=== PATIENT | female | born 1930 | race Caucasian/White ===

== ENCOUNTER 2016-09-07 14:45 | Inpatient (IN) | payer MEDICARE, BC ==
[~2016-09-07] VITALS: Ht 149.9 cm; Wt 58.4 kg
--- NOTE | ~2016-09-07 | CON ---
PATIENT'S NAME: KARLA CUEVA [facility] AGE: 85 Y [address] ROOM: [place] [address] LOCATION: [facility] [place] ADMIT DATE: 09/07/2016 Consultation DISCHARGE DATE: FAMILY PHYSICIAN: PHYSICIAN, UNKNOWN ATTENDING PHYSICIAN: TRICE HENRY DATE OF CONSULTATION: 09/07/2016 REFERRING PHYSICIAN: Coral Mayo MD REFERRING PHYSICIAN: Dr. Henry. CONSULTING PHYSICIAN: Coral Mayo MD. REASON FOR CONSULTATION: Possible choledocholithiasis. HISTORY OF PRESENT ILLNESS: The patient is a pleasant 85-year-old white female, referred to us from [place] for suspected choledocholithiasis. According to the patient, she has not been well during entire winter starting from . She has been experiencing intermittent right upper quadrant pain. This is sharp, stabbing pain and this lasts for few minutes and then disappears. This pain really got worse in the last week or so. She also had episodes of nausea and vomiting. Initially, she was given some antibiotics and sent home, but the pain persisted. She was then seen in the ER in [place] with complains of increasing discomfort as well as pain. The PA from [place], [place], called me. We have decided to shift the patient over for further management. She was also noted to have increased LFTs as well as increasing WBC count. I unfortunately do not have access to the ultrasound report. PAST MEDICAL HISTORY: Significant for hypothyroidism, vertigo, rheumatoid arthritis, gastroesophageal reflux disease. ALLERGIES: TO DEMEROL, SULFA, AND LATEX. CURRENT MEDICATIONS: At home include: 1. Naprosyn sodium b.i.d. 2. Calcium with vitamin D. 3. Triamterene and hydrochlorothiazide. 4. Azathioprine 50 mg. PATIENT'S NAME: KARLA CUEVA [facility] AGE: 85 Y [address] ROOM: [place] [address] LOCATION: [facility] [place] ADMIT DATE: 09/07/2016 Consultation DISCHARGE DATE: FAMILY PHYSICIAN: PHYSICIAN, UNKNOWN ATTENDING PHYSICIAN: TRICE HENRY 5. Multivitamin. 6. Tramadol. 7. Cyanocobalamin. 8. Cholecalciferol. 9. Omeprazole. 10. Levothyroxine. 11. Cetirizine. SOCIAL HISTORY: She denies any cigarette or illicit drug use. PAST SURGICAL HISTORY: Significant for tonsillectomy, hysterectomy, bilateral knee arthroplasty, and post bilateral cataract surgery. FAMILY HISTORY: Father from complications from hip fracture at age 98. Mother from colon cancer at age 87. REVIEW OF SYSTEMS: A detailed 10-point review of system was done and found to be negative other than what is mentioned in the history of present illness and past medical history. PHYSICAL EXAMINATION: GENERAL: She is alert and awake. She appears to be slightly flushed. VITAL SIGNS: Blood pressure is 123/76, respiratory rate is 18, pulse 99 per minute, temperature is 97.6. HEENT: Reveals no pallor. She does appear to have mild icterus, light is of limited at this time. NECK: No masses are felt. No thyromegaly is felt. CARDIOVASCULAR: S1 and S2. I do not hear any carotid bruits. CHEST: Clear to auscultation bilaterally. No wheezing. No rhonchi. ABDOMEN: Soft. There is mild epigastric tenderness. No rigidity, guarding, or rebound. MUSCULOSKELETAL: No obvious deformities are seen. NEUROLOGICAL: Grossly nonfocal. LABORATORY DATA: The lactate level is 1.7, which is slightly increased. WBC 13.2, hemoglobin 15.2, hematocrit 44.9, platelet count 214. Her basic panel shows a sodium 131, potassium 4.1, chloride is 95, bicarb is 27, BUN is 22, creatinine 0.8. Total protein 7.9, albumin 2.5, total bilirubin 3.9, ALP of 108, AST of 94, alkaline phosphatase of 320. She had an amylase and lipase done, which were normal. TSH is slightly high at 6.650. Procalcitonin is high at 3.52. PATIENT'S NAME: KARLA CUEVA [facility] AGE: 85 Y [address] ROOM: [address] [address] LOCATION: [facility] [place] ADMIT DATE: 09/07/2016 Consultation DISCHARGE DATE: FAMILY PHYSICIAN: PHYSICIAN, UNKNOWN ATTENDING PHYSICIAN: TRICE HENRY IMAGING DATA: Ultrasound report is not available. An ultrasound has been ordered for the morning. IMPRESSION: From a clinical perspective, this does appear to be possible choledocholithiasis. We don't have the official ultrasound report. In the meanwhile, the patient should be continued on IV antibiotics. The patient will have an ultrasound of the abdomen done. If it does not have convincing evidence of choledocholithiasis, we will perform ERCP . Pending the results of that the ERCP will be performed. The procedure of ERCP was explained in detail to the patient. All risks, including but not limited to, bleeding, perforation, possible need of surgery, acute pancreatitis explained. Informed consent was then obtained. Thank you once again for the courtesy of this consultation. JOSTINF MD ELIZABETH MCCARTHY/elayne /[id number] d: 09/08/16 0118 t: 09/08/16 1554, CONSULTATION REPORT
--- NOTE | ~2016-09-07 | HP ---
PATIENT'S NAME: KARLA CUEVA [facility] AGE: 85 Y [address] ROOM: [address] [place], [place] [address] [place] [facility] [place] DATE: 09/07/2016 History & Physical DISCHARGE DATE: FAMILY PHYSICIAN: PHYSICIAN, UNKNOWN ATTENDING PHYSICIAN: TRICE HENRY DATE OF SERVICE: CHIEF COMPLAINT: Right upper quadrant pain. HISTORY OF PRESENT ILLNESS: This is an 85-year-old female who says that since May 2016, she has been experiencing this on and off intermittent right upper quadrant pain that she described as crampy and stabbing type of pain. The pain will last about a few minutes and is on and off. Sometimes the pain is associated with nausea and sometimes with nonbloody vomiting. This pain has been going on and off for the next few months and for the last 2 weeks the right upper quadrant pain has become more frequent and intense. The pain is usually triggered after eating greasy food such as a fried chicken or Sinhala fries. Because of the worsening pain, the patient went to the emergency room in [place]. The patient was given some antibiotics including ciprofloxacin and Flagyl and was given some pain control and IV fluids and sent home. Her pain persisted, so she was sent to [place] last , and she had an ultrasound of the abdomen performed. She was told that she had a gallstone, but she was not sure of what size and where. She was sent home with the same antibiotics. Her pain persisted, so she went back to the ER in [place]. She was given some pain control and was tested for blood work. It showed that her leukocytosis was better than the first time she was seen in the emergency room in [place]. So she was sent home with a pain control and with the same antibiotics. Her pain persisted and got worse so she went back to the emergency room in [place] again yesterday, and she was told that her blood work was checked again. Her white blood cell was slightly higher than yesterday. She was told to come back today to the [place] ER again to check another blood work to see if the white blood cell will go even higher. Today, her white blood cell from the outside facility was even higher than yesterday; therefore, the patient was sent over here for higher level of care. The report of the ultrasound was never obtained from the outside facility ER in [place]. Therefore, it was never sent here with the patient. We do not have the records of the ultrasound report that was done in [place]. The patient denies any fever or chills, chest pain, shortness of breath, or any other symptoms except the right upper quadrant pain as described above. REVIEW OF SYSTEMS: As mentioned in the history of present illness. All other systems reviewed PATIENT'S NAME: KARLA CUEVA [facility] AGE: 85 Y [address] ROOM: [address] [address] [place] [facility] [place] DATE: 09/07/2016 History & Physical DISCHARGE DATE: FAMILY PHYSICIAN: PHYSICIAN, UNKNOWN ATTENDING PHYSICIAN: TRICE HENRY and negative except for those mentioned in history of present illness. PAST MEDICAL HISTORY: 1. Hypothyroidism. 2. Vertigo. 3. Rheumatoid arthritis. 4. Gastroesophageal reflux disease. ALLERGIES: DEMEROL WHICH CAUSES HALLUCINATION, SULFA WHICH CAUSES HIVES, AND THE LATEX WHICH CAUSES HIVES ALSO. HOME MEDICATIONS: Currently is being reconciled. SOCIAL HISTORY: She denies any cigarette or illegal drug or alcohol use. PAST SURGICAL HISTORY: Status post tonsillectomy, status post hysterectomy, status post bilateral knee arthroplasty, and status post bilateral cataract surgery. FAMILY HISTORY: Father from complication from the hip fracture at age 98. She was not sure which hip. Mother from colon cancer at age 87. PHYSICAL EXAMINATION: VITAL SIGNS: At the time of my dictation, temperature 97.6, heart rate 99, respirations 16, blood pressure 123/73, saturation 99% on room air. Pain 2/10 in the right upper quadrant. GENERAL APPEARANCE: Alert and oriented x3, in no acute distress. HEENT: Pupils are equally round and reactive to light. Extraocular muscles intact. Icteric sclerae bilaterally. Nasal turbinates are normal bilaterally. Moist oral mucosa. No oral thrush. NECK: No JVD. No cervical lymphadenopathy. No neck stiffness. CARDIOVASCULAR: Regular rate and rhythm. Normal S1, S2. No murmur. No rubs, no gallops. RESPIRATORY: Clear. Chest wall nontender to palpation. ABDOMEN: Currently, there is no right upper quadrant pain on deep inspiration. Gordon sign negative. No rebound tenderness. No abdominal rigidity. Soft. Nontender. Nondistended. Bowel sounds are present. No hepatosplenomegaly. EXTREMITIES: No edema in upper or lower extremities. NEUROLOGICAL: Grossly nonfocal. SKIN: She does have icteric sclerae bilaterally, but the skin is not PATIENT'S NAME: KARLA CUEVA [facility] AGE: 85 Y [address] ROOM: [place] [address] [place] [facility] [place] DATE: 09/07/2016 History & Physical DISCHARGE DATE: FAMILY PHYSICIAN: PHYSICIAN, UNKNOWN ATTENDING PHYSICIAN: TRICE HENRY jaundiced. No ulcer, no rash, no cyanosis. MUSCULOSKELETAL: No joint pain. No muscle pain. Range of motion intact. LABORATORY DATA: Laboratory data from the outside facility today showed glucose 99, BUN 20, creatinine 0.7, sodium 134, potassium 4.0, chloride 93, alkaline phosphatase 284. AST 109, ALT 123, total bilirubin 5.7, calcium 9.7, total protein 8.2, albumin 3.6. GFR 84. White blood cell 12.6, hemoglobin 15.4, hematocrit 43.8, and platelets 249. IMAGING: According to the patient, the patient had a KUB performed today from the outside facility in [place] Emergency [facility]. The disc has currently been sent down to our radiology department to upload on to the PAC. EKG performed from the outside facility today showed sinus rhythm, heart rate 97 beats per minute without any acute ischemic changes. Occasional premature atrial contraction. ASSESSMENT AND PLAN: 1. Right upper quadrant pain consistent with biliary colic likely secondary to cholelithiasis and/or choledocholithiasis: We do not have the official report of the right upper quadrant ultrasound that was performed a few days ago at [place]. The ER from the [place] did not request, and at this time, the medical record department is closed in [place]. The plan will be low-fat diet today and n.p.o. after midnight for ERCP tomorrow. I will get a complete abdominal ultrasound tomorrow morning at 6:00 a.m. to look better at the liver morphology and look at the gallstone size and the location. I have already spoken to the finishing technician, his name is Ranjit, phone #[phone], and he will be here at 6:00 a.m. in the morning. He will do this imaging first, and he will call Dr. Mayo directly to tell him about the preliminary report. Once Dr. Mayo has the preliminary report, Dr. Mayo can go ahead and perform the ERCP with more idea about what is the location of the stone and the size. Ultrasound is not the best test looking for the pancreas. The patient does have elevation of total bilirubin. I will go ahead and get a CT abdomen and pelvis to look for the pancreatic morphology to make sure this is not obstructive jaundice coming from the pancreas in the setting of an indirect hyperbilirubinemia. Most likely, the patient's jaundice in the indirect hyperbilirubinemia is from the choledocholithiasis with cholelithiasis. CT abdomen and pelvis is a better imaging looking for the pancreas to rule out pancreatic obstructive cause. N.p.o. after midnight. IV fluids for hydration. I will cover her with IV Zosyn and pain controlled with IV morphine p.r.n. Further plan depends on clinical course. Nausea with IV Zofran. Start PATIENT'S NAME: KARLA CUEVA [facility] AGE: 85 Y [address] ROOM: [place] [address] [place] [facility] [place] DATE: 09/07/2016 History & Physical DISCHARGE DATE: FAMILY PHYSICIAN: PHYSICIAN, UNKNOWN ATTENDING PHYSICIAN: TRICE HENRY her on p.o. Florastor to prevent antibiotic-induced Clostridium difficile colitis. I will also check amylase and lipase and repeat labs in the morning also. 2. Regarding her hypothyroidism: Check her TSH. Continue her home levothyroxine and adjust the dose based on the TSH. 3. Regarding her gastroesophageal reflux disease: We will continue her omeprazole 20 mg p.o. daily. 4. Regarding her rheumatoid arthritis: Continue her azathioprine home dose. 5. DVT prophylaxis: She will be on compression devices in anticipation for the ERCP tomorrow. Time spent on the day of admission of 40 minutes including chart review, interviewing the patient, examining the patient, addressing all the questions and concerns that the patient and the patient's family members had. I also went over the plan of care with the nurse and with the patient and the patient's family members. MD MARY THEODORE/elayne /[id number] D: [id number] T: [id number] HISTORY & PHYSICAL
--- NOTE | ~2016-09-07 | DS ---
PATIENT'S NAME: KARLA CUEVA [facility] AGE: 85 Y [address] ROOM: [address] [place], [place] [address] LOCATION: [facility] [place] ADMIT DATE: 09/07/2016 Discharge Summary DISCHARGE DATE: 09/11/2016 FAMILY PHYSICIAN: Physician, Unknown ATTENDING PHYSICIAN: Augusto Suarez FINAL DIAGNOSES: 1. Choledocholithiasis status post PTC drain. 2. Cholecystitis with cholelithiasis. 3. Leukocytosis. 4. Hypokalemia. 5. Hypothyroidism. 6. [id number] protein-calorie malnutrition. CONSULTANTS ON THE CASE: Dr. Mayo. PROCEDURES: 1. Attempted ERCP with failure. 2. Percutaneous transhepatic cholangiogram with placement of right internal- external biliary drainage catheter with ultrasound guidance. HOSPITAL COURSE: Please see details of admission in H and P by Dr. Suarez. Briefly, the patient was admitted with severe abdominal pain. She was seen in [place] and transferred here for suspected cholelithiasis. On admission, the patient was placed on Zosyn and Zofran. Dr. Buitrago was consulted at the time of admission. Morphine was utilized for pain control. We did get an ultrasound and CT of the abdomen and pelvis on admission. Dr. Mayo initially consulted on the patient, planned for ERCP depending on the abdominal ultrasound. They then proceeded with the ERCP, however, due to large diverticulum blocking the ampulla, they were unable to proceed any further. Dr. Knox was consulted then for drainage placement. This was done on 09/08/2016. Postoperatively, the patient did pretty well. She did have some elevated leukocytosis at 13.2 on the . It was felt that we should do blood cultures and culture of the drainage fluid. The patient did require replacement of potassium throughout her stay. On the , everything subsequently was negative to date. The patient was feeling much better and eating much better. It was felt that she could safely transfer to [facility] to continue her convalescence. The patient and family were all in agreement and LUIS Irwin, was contacted and accepted the patient. DIAGNOSTICS: Ultrasound of the abdomen showed; 1. Cholelithiasis with gallbladder wall thickening, reflecting either acute or chronic cholecystitis. 2. Dilated bile duct, no intraductal stones visible, subtle ductal stone suspected on CT. PATIENT'S NAME: KARLA CUEVA [facility] AGE: 85 Y [address] ROOM: [address] [place], [place] [address] LOCATION: [facility] [place] ADMIT DATE: 09/07/2016 Discharge Summary DISCHARGE DATE: 09/11/2016 FAMILY PHYSICIAN: Physician, Unknown ATTENDING PHYSICIAN: Augusto Suarez 3. Benign liver and spleen cyst. 4. 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 CT of the abdomen and pelvis with contrast on 09/07/2016, showed cholelithiasis with gallbladder wall edema, bile duct dilations suspecting choledocholithiasis, thrombosis of the right portal vein, hepatic and splenic lesions, status post hysterectomy. One view of the chest on , no acute findings, however, suspecting parenchymal lung scarring present. LABORATORY STUDIES: Lactate on the was 1.7, on the it was 1.0. On admission; sodium was 131, potassium 4.1, chloride 95, bicarb 27, glucose 77, BUN 22, creatinine 0.8, total bilirubin 3.9, direct bilirubin 2.3, indirect 1.6, alkaline phosphatase 320, AST 94, ALT 108, amylase 58, lipase is 168, and TSH was 6.65. Prior to discharge; sodium 135, potassium 3.8, chloride 103, bicarb 26, glucose 88, BUN 14, creatinine 0.7, and phosphorus 3.2. On admission; white blood cell count was 13.2, hemoglobin 15.2, hematocrit 44.9, and platelets 214. Coags within normal limits. Prior to discharge; white blood cell count was 10.4, hemoglobin 13.2, hematocrit 38.1, and platelets 352. Urinalysis, no signs of hematuria or bacteriuria. Culture of the bile fluid just showed light growth of yeast, otherwise normal nirali. Urine culture was negative. Blood cultures were negative. DISCHARGE INSTRUCTIONS: The patient was discharged to [facility] under the care of LUIS Irwin. Dr. Mayo will continue to follow the patient and see her back in 4 weeks. The patient is scheduled to have a bile drain check with removal of common bile duct stones with Dr. Knox at [facility] in 3 weeks. The patient's code status is full code. Diet is low fat. Weightbearing status is as tolerated. We will continue occupational and physical therapy. Use oxygen as needed to maintain saturations greater than 90%. The patient should have a TSH and free T4 repeated in 6 weeks. The patient is to have her drain flushed with 10 mL normal saline twice daily and record output. The patient's rehab potential is good. Discharge potential is good. The patient and family aware of her condition and diagnosis on discharge. DISCHARGE MEDICATIONS: 1. Flonase 2 sprays each nostril daily. 2. Levothyroxine 137 mcg daily. 3. MiraLax 17 grams daily as needed for constipation. 4. Florastor 250 mg twice daily. 5. Tylenol 650 mg every 4 hours as needed. 6. [place] 5/325 one tablet q.4 to 6 hours as needed. 7. Zofran 4 mg twice daily p.r.n. PATIENT'S NAME: KARLA CUEVA [facility] AGE: 85 Y [address] ROOM: [place] [address] LOCATION: [facility] [place] ADMIT DATE: 09/07/2016 Discharge Summary DISCHARGE DATE: 09/11/2016 FAMILY PHYSICIAN: Physician, Unknown ATTENDING PHYSICIAN: Augusto Suarez 8. Calcium with vitamin D 1000 mg twice daily. 9. Ultram 50 mg 4 times daily p.r.n. 10. Maxzide 37.5/25 one tablet daily. 11. Multivitamin 1 tablet daily. 12. Red yeast rice 600 mg daily. 13. Vitamin B12, 500 mcg daily. 14. Vitamin D3, 1000 units daily. 15. Zantac 150 mg twice daily. 16. Zyrtec 10 mg daily. 17. Cipro 250 mg 1 p.o. twice daily, #20, no refills. I do appreciate participating in this patient's care and thank you very much for the ability to serve her while hospitalized at [facility]. Time spent coordinating details of discharge was greater than 30 minutes, which was spent coordinating with consulting physicians, care management, completion of medication reconciliation, education to the patient and family on the above-mentioned diagnoses. JESSICA YE FOR CONNIE SHARPE MD ROSY/modl /[id number] CC: LUIS Irwin d: 09/13/16 0146 t: 09/15/16 1433, DISCHARGE SUMMARY
[2016-09-07] MEDS ORDERED: ALEVE220 M1 PO (17:48)
[2016-09-07] MEDS ORDERED: OSCAL + D500 MG PO (17:49)
[2016-09-07] MEDS ORDERED: MAXZIDE 37.5 M1 EACH PO (17:53)
[2016-09-07] MEDS ORDERED: IMURAN50 MG PO (17:56)
[2016-09-07] MEDS ORDERED: RED YEAST RICE600 M1 PO (17:57)
[2016-09-07] MEDS ORDERED: THERA-VITE W/ B1 TAB PO (17:57)
[2016-09-07] MEDS ORDERED: ULTRAM50 MG PO (17:59)
[2016-09-07] MEDS ORDERED: B-12500 MCG PO (18:04)
[2016-09-07] MEDS ORDERED: VITAMIN D1000 UNIT PO (18:06)
[2016-09-07] MEDS ORDERED: LEVOTHROID (S137 MCG PO (18:08)
[2016-09-07] MEDS ORDERED: ZANTAC150 MG PO (18:08)
[2016-09-07] MEDS ORDERED: ZYRTEC10 M3 PO (18:09)
--- NOTE | 2016-09-07 18:41 | NUR ---
Patient admitted at 1720, came by private car from [place], [place]. Has been having abdominal pain and nausea, decreased appetite. WBC 17.5 today. Sent to [facility] for evaluation and possible gall bladder surgery. Oriented to [facility] floor. VSS. Quijano.
[2016-09-07 20:37] LABS: BASOPHIL # 0.1 K/uL (0.0-0.2); BASOPHIL % 0.4 %; EOSINOPHIL # 0.2 K/uL (0.0-0.5); EOSINOPHIL % 1.3 %; HEMATOCRIT 44.9 % (30.0-46.0); HEMOGLOBIN 15.2 g/dL (10.0-15.0); IMMATURE GRANULOCYTE # 0.2 K/uL (0.0-0.3); IMMATURE GRANULOCYTE % 1.5 %; LYMPHOCYTE # 1.2 K/uL (0.8-4.0); LYMPHOCYTE % 9.1 %; MCH 29.9 pg (27.0-34.0); MCHC 33.9 gm/dL (32.0-36.5); MCV 88.2 fl (83.0-98.0); MONOCYTE # 1.2 K/uL (0.0-1.0); MONOCYTE % 9.3 %; MPV 10.7 fl (9.4-12.4); NEUTROPHIL # (ANC) 10.4 K/uL (1.8-7.8); NEUTROPHIL % 78.4 %; NRBC % 0 /100WBC (0-0.00); PLATELET COUNT 214 K/uL (150-450); RBC 5.09 M/uL (3.00-5.00); RDW-CV 14.3 % (11.9-14.6); WBC 13.2 K/uL (4.0-11.0)
[2016-09-07 20:47] LABS: INR - (THERAPEUTIC) 1.1 (0.9-1.1); PROTIME 11.4 SECONDS (9.6-11.1); PTT 30 SECONDS (25-32)
[2016-09-07 21:00] LABS: ALBUMIN 2.5 gm/dL (3.5-5.0); ALK PHOS 320 IU/L (33-138); ALT 108 IU/L (12-78); BLOOD UREA NITROGEN 22 mg/dL (6-24); CALCIUM 9.1 mg/dL (8.5-10.5); CHLORIDE 95 mMol/L (96-110); CO2 27 mMol/L (22-32); CREATININE 0.8 mg/dL (0.5-1.1); ESTIMATED GFR (MDRD EQUATION) > 60; SODIUM 131 mMol/L (135-145); TOTAL BILIRUBIN 3.9 mg/dL (0.0-1.5); TOTAL PROTEIN 7.9 g/dL (6.0-8.4)
[2016-09-07 21:02] LABS: ANION GAP 13.1 (10.0-19.0); AST 94 IU/L (10-40); POTASSIUM 4.1 mMol/L (3.7-5.1)
[2016-09-08 05:28] LABS: BASOPHIL % 0.3 %; EOSINOPHIL # 0.2 K/uL (0.0-0.5); EOSINOPHIL % 1.6 %; HEMATOCRIT 39.1 % (30.0-46.0); HEMOGLOBIN 13.3 g/dL (10.0-15.0); IMMATURE GRANULOCYTE # 0.2 K/uL (0.0-0.3); IMMATURE GRANULOCYTE % 1.7 %; LYMPHOCYTE # 1.1 K/uL (0.8-4.0); LYMPHOCYTE % 8.9 %; MCH 29.7 pg (27.0-34.0); MCV 87.3 fl (83.0-98.0); MONOCYTE # 1.4 K/uL (0.0-1.0); MONOCYTE % 10.7 %; MPV 10.8 fl (9.4-12.4); NEUTROPHIL # (ANC) 9.7 K/uL (1.8-7.8); NEUTROPHIL % 76.8 %; NRBC % 0 /100WBC (0-0.00); PLATELET COUNT 227 K/uL (150-450); RBC 4.48 M/uL (3.00-5.00); RDW-CV 14.3 % (11.9-14.6); WBC 12.6 K/uL (4.0-11.0)
--- NOTE | 2016-09-08 05:28 | NUR ---
SIGNIFICANT EVENT: Patient alert & oriented. WBC elevated - 17. 1 PA, cane and gaitbelt. [place] 5/325, 2 tabs given at approx 2200 and 0400 with noted relief. Needs UA. Tachycardic, other VSS on RA. NPO since MN for abd ultrasound, ERCP to follow. Allergic to Sulfas and Demerol. Does not want morphine as it makes her nauseous. 4 voids, no BM.
[2016-09-08 05:47] LABS: ALBUMIN 2.2 gm/dL (3.5-5.0); ALK PHOS 286 IU/L (33-138); ALT 85 IU/L (12-78); ANION GAP 12.3 (10.0-19.0); AST 81 IU/L (10-40); BLOOD UREA NITROGEN 19 mg/dL (6-24); CALCIUM 8.3 mg/dL (8.5-10.5); CHLORIDE 99 mMol/L (96-110); CO2 27 mMol/L (22-32); CREATININE 0.7 mg/dL (0.5-1.1); ESTIMATED GFR (MDRD EQUATION) > 60; POTASSIUM 3.3 mMol/L (3.7-5.1); SODIUM 135 mMol/L (135-145); TOTAL BILIRUBIN 4.1 mg/dL (0.0-1.5); TOTAL PROTEIN 6.4 g/dL (6.0-8.4)
[2016-09-08 10:13] LABS: BLOOD URINE NEGATIVE /UL (NEGATIVE); GLUCOSE URINE NEGATIVE (NEGATIVE); KETONE URINE NEGATIVE (NEGATIVE); LEUKOCYTES URINE 25 /UL (NEGATIVE); NITRITE URINE POSITIVE (NEGATIVE); PROTEIN URINE 30 mg/dL (NEGATIVE); SPEC GRAVITY URINE 1.005 (1.003-1.035); UROBILINOGEN URINE 1 mg/dL (NORMAL)
[2016-09-08 10:25] LABS: COLOR URINE AMBER (YELLOW); TURBIDITY URINE CLEAR (CLEAR)
[2016-09-08 10:26] LABS: RBC URINE NEGATIVE #/HPF (NEGATIVE); WBC URINE 0-2 #/HPF (NEGATIVE)
[2016-09-08 10:27] LABS: BACTERIA URINE FEW (NEGATIVE); EPITHELIAL URINE 0-2 #/HPF (NEGATIVE); MUCUS URINE 1+ (NEGATIVE)
[2016-09-08] MEDS ORDERED: NORCO 5-325 TA1 EACH PO (10:49)
[2016-09-08] MEDS ORDERED: CIPRO500 MG PO (10:50)
[2016-09-08] MEDS ORDERED: FLAGYL500 MG PO (10:51)
[2016-09-08] MEDS ORDERED: ZOFRAN ODT4 MG PO (10:51)
[2016-09-08] MEDS ORDERED: FLONASE 50 MCG/16 GM NOSE (10:52)
[2016-09-08 15:40] LABS: HEMATOCRIT 39.8 % (30.0-46.0); HEMOGLOBIN 13.4 g/dL (10.0-15.0); MCH 29.7 pg (27.0-34.0); MCHC 33.7 gm/dL (32.0-36.5); MCV 88.2 fl (83.0-98.0); MPV 10.3 fl (9.4-12.4); RBC 4.51 M/uL (3.00-5.00); RDW-CV 14.6 % (11.9-14.6)
[2016-09-08 15:47] LABS: INR - (THERAPEUTIC) 1.1 (0.9-1.1); PROTIME 11.4 SECONDS (9.6-11.1)
--- NOTE | 2016-09-08 16:37 | NUR ---
Significant event: Pt is alert and oriented x3. VSS. On room air. IV now to right forearm with fluids running. Has Intermittent antibiotics and currently Potassium running. Pt left floor this morning for ERCP, unable to perform. Came back to floor and left to interventional radiology for drain placement by Dr Main. Plan is to have ERCP tomarrow. Has been NPO since after midnight last night. No complaints of severe pain, just uncomfortable, refused any pain medication. Pt is stand by assist with ambulation. PT has been consultated and has seen patient. UA was sent. Currently patient is down in interventional radiology. Has been cooperative with [facility].
[2016-09-08 20:15] LABS: BILIRUBIN URINE NEGATIVE (NEGATIVE); BLOOD URINE NEGATIVE /UL (NEGATIVE); GLUCOSE URINE NEGATIVE (NEGATIVE); KETONE URINE 5 mg/dL (NEGATIVE); LEUKOCYTES URINE 25 /UL (NEGATIVE); NITRITE URINE NEGATIVE (NEGATIVE); PROTEIN URINE 15 mg/dL (NEGATIVE); UROBILINOGEN URINE NORMAL (NORMAL)
[2016-09-08 20:19] LABS: COLOR URINE YELLOW (YELLOW); TURBIDITY URINE CLEAR (CLEAR)
[2016-09-08 20:20] LABS: RBC URINE NEGATIVE #/HPF (NEGATIVE)
[2016-09-08 20:21] LABS: BACTERIA URINE NEGATIVE (NEGATIVE); EPITHELIAL URINE 0-2 #/HPF (NEGATIVE)
[2016-09-09 05:35] LABS: BASOPHIL % 0.2 %; EOSINOPHIL # 0.1 K/uL (0.0-0.5); EOSINOPHIL % 0.5 %; HEMATOCRIT 37.4 % (30.0-46.0); HEMOGLOBIN 12.5 g/dL (10.0-15.0); IMMATURE GRANULOCYTE # 0.4 K/uL (0.0-0.3); IMMATURE GRANULOCYTE % 2.8 %; LYMPHOCYTE # 1.4 K/uL (0.8-4.0); LYMPHOCYTE % 10.8 %; MCH 29.6 pg (27.0-34.0); MCHC 33.4 gm/dL (32.0-36.5); MCV 88.6 fl (83.0-98.0); MONOCYTE # 1.1 K/uL (0.0-1.0); MONOCYTE % 8.7 %; MPV 10.3 fl (9.4-12.4); NEUTROPHIL # (ANC) 9.6 K/uL (1.8-7.8); NRBC % 0 /100WBC (0-0.00); PLATELET COUNT 263 K/uL (150-450); RBC 4.22 M/uL (3.00-5.00); RDW-CV 14.8 % (11.9-14.6); WBC 12.5 K/uL (4.0-11.0)
[2016-09-09 05:51] LABS: ALK PHOS 239 IU/L (33-138); ALT 64 IU/L (12-78); ANION GAP 11.6 (10.0-19.0); AST 57 IU/L (10-40); BLOOD UREA NITROGEN 17 mg/dL (6-24); CALCIUM 7.9 mg/dL (8.5-10.5); CHLORIDE 109 mMol/L (96-110); CO2 24 mMol/L (22-32); CREATININE 0.6 mg/dL (0.5-1.1); ESTIMATED GFR (MDRD EQUATION) > 60; MAGNESIUM 2.2 mg/dL (1.3-2.6); POTASSIUM 3.6 mMol/L (3.7-5.1); SODIUM 141 mMol/L (135-145); TOTAL PROTEIN 5.8 g/dL (6.0-8.4)
[2016-09-09 05:52] LABS: ALBUMIN 1.9 gm/dL (3.5-5.0); TOTAL BILIRUBIN 1.6 mg/dL (0.0-1.5)
--- NOTE | 2016-09-09 07:04 | NUR ---
Significant Event: Pt alert and oriented. Up with A1. Drain in RUQ, dsg c/d/i. Flush drain bid. draining well. Fluids at 80ml/hr, zosyn q8hr. Orders to F/U with Dr Main in 3 weeks. Follow up:
--- NOTE | 2016-09-09 14:29 | NUR ---
PT. HAD BILIARY T-TUBE TO GRAVITY DRAINING DARK GREEN MUCOUSY FLUID. EMPITIED SEVERAL TIMES THIS SHIFT.
--- NOTE | 2016-09-09 16:11 | NUR ---
Significant Event:PT. A/O AND UP TO BR AND HALLWAY WITH STANDBY ASSIST. DENIES PAIN. LAST PAIN MED GIVEN AT 1030. EATING REGULAR DIET. T-TUBE FROM GALLBLADDER DRAINING DARK GREEN MUCOUSY FLUID 600MLS. PT IS HOPEING TO GO HOME WITH TUBE. IV RFA. Follow up:
--- NOTE | 2016-09-09 17:57 | NUR ---
SPOKE TO PATIENT REGARDING CM AND OUR ROLE. PATIENT LIVES IN OWN HOME ALONE. SHE DOES NOT ANTICIPATE ANY DISCHARGE NEEDS AT THIS TIME. SHE REPORTS THAT SHE HAS FAMILIY NEAR BY TO HELP.
--- NOTE | 2016-09-10 03:54 | NUR ---
Significant Event:PT IS A/O X3. PT HAD T TUBE DRAIN PLACEMENT YESTERDAY TO RIGHT SIDE. NEED TO FLUSH DRAIN BID. IV TO R FA CAN BE SL BUT WILL HAVE 0500 DOSE OF ZOSYN RUNNING. VSS, PLAN TO TRANSFER TO [place] IN [place] WHEN OK W/ PT HAD 615MLS OUT DRAIN OF GREEN FLUID. PT WILL RECIEVE A SUPPOSITORY THIS MORNING R/T NO BM FOR ABOUT 1 WEEK, DID START ON STOOL SOFTNERS LAST NIGHT. Follow up:MONITOR FOR BM AND DRAIN OUTPUT
[2016-09-10 05:30] LABS: HEMATOCRIT 39.9 % (30.0-46.0); HEMOGLOBIN 13.2 g/dL (10.0-15.0); MCH 29.3 pg (27.0-34.0); MCHC 33.1 gm/dL (32.0-36.5); MCV 88.5 fl (83.0-98.0); MPV 10.1 fl (9.4-12.4); RBC 4.51 M/uL (3.00-5.00); RDW-CV 15.2 % (11.9-14.6); WBC 13.2 K/uL (4.0-11.0)
[2016-09-10 05:32] LABS: PLATELET COUNT 325 K/uL (150-450)
[2016-09-10 05:40] LABS: ANION GAP 11.4 (10.0-19.0); BLOOD UREA NITROGEN 14 mg/dL (6-24); CALCIUM 8.3 mg/dL (8.5-10.5); CHLORIDE 103 mMol/L (96-110); CO2 25 mMol/L (22-32); CREATININE 0.6 mg/dL (0.5-1.1); ESTIMATED GFR (MDRD EQUATION) > 60; POTASSIUM 3.4 mMol/L (3.7-5.1); SODIUM 136 mMol/L (135-145)
[2016-09-10 05:57] LABS: ABSOLUTE NEUTROPHIL CT (ANC) 7.9 K/uL (1.8-7.8); BANDED NEUTROPHIL # 1.7 K/uL (0.0-0.1); BANDED NEUTROPHILS % 13 %; LYMPHOCYTE # 3.4 K/uL (0.8-4.0); LYMPHOCYTE % 26 %; MONOCYTE # 0.7 K/uL (0.0-1.0); SEGMENTED NEUTROPHIL # 6.2 K/uL (1.8-7.8); SEGMENTED NEUTROPHIL % 47 %
[2016-09-10 14:11] LABS: BILIRUBIN URINE NEGATIVE (NEGATIVE); BLOOD URINE NEGATIVE /UL (NEGATIVE); COLOR URINE YELLOW (YELLOW); GLUCOSE URINE NEGATIVE (NEGATIVE); KETONE URINE NEGATIVE (NEGATIVE); LEUKOCYTES URINE NEGATIVE /UL (NEGATIVE); NITRITE URINE NEGATIVE (NEGATIVE); PH URINE 6.5 (4.0-8.0); PROTEIN URINE NEGATIVE (NEGATIVE); TURBIDITY URINE CLEAR (CLEAR); UROBILINOGEN URINE NORMAL (NORMAL)
--- NOTE | 2016-09-10 14:45 | NUR ---
[facility] REFERRAL TO [facility] FOR PATIENT TO GO TO [facility]. I SPOKE TO KARLA AND SHE FEELS THAT SHE NEEDS TO GO TO THE [facility] IN [place]. I SPOKE TO JOSHUA OTEROTOR SHE TELLS ME THAT THEY HAVE A FEMALE BED. SHE WOULD LIKE FOR ME TO FAX INFO TO HER SHE WILL REVIEW IT AND GET BACK TO ME. SHE REPORTS THE JESSICA RASHEED WILL NEED TO BE CONTACTED ONCE PATIENT IS READY FOR DISCHARGE. HIS CONTACT NUMBER IS [phone]. I FAXED INFO TO NIMO WILL AWAIT CALL BACK FROM HER.
--- NOTE | 2016-09-10 17:32 | NUR ---
Significant Event:PT. UP TO CHAIR AND IN HALLWAY X3 TODAY. PAIN MED THIS MORNING. BILIARY TUBE DRAINING [employer] YELLOW FLUID NOW, SAMPLE SENT TO LAB AND UA SENT TO LAB. EATING W/O DIFFICUTLY. IV RFA. HAD 3 MORE BM'S TODAY.T-TUBE TEACHING DONE WITH PT. PLAN TO GO HOME WITH T-TUBE. Follow up:
--- NOTE | 2016-09-11 05:07 | NUR ---
SIGNIFICANT EVENT: Patient alert & oriented, IGIUGIG. VSS on RA - tachycardic. Bili bag/T Tube to R) abdomen draining green bile - 342 out. Regular diet. Intermittent IV antibiotics to R) forearm PIV. 1PA with cane to BR. [place] x2, last at 0122. R) abd dressing has some shadow drainage, but is clean, dry, intact. Pleasant and cooperative with cares.
[2016-09-11 06:17] LABS: HEMATOCRIT 38.1 % (30.0-46.0); HEMOGLOBIN 12.7 g/dL (10.0-15.0); MCH 29.5 pg (27.0-34.0); MCHC 33.3 gm/dL (32.0-36.5); MCV 88.4 fl (83.0-98.0); MPV 9.6 fl (9.4-12.4); PLATELET COUNT 352 K/uL (150-450); RBC 4.31 M/uL (3.00-5.00); RDW-CV 15.1 % (11.9-14.6); WBC 10.4 K/uL (4.0-11.0)
[2016-09-11 06:36] LABS: ALBUMIN 2.2 gm/dL (3.5-5.0); ANION GAP 9.8 (10.0-19.0); BLOOD UREA NITROGEN 14 mg/dL (6-24); CALCIUM 8.4 mg/dL (8.5-10.5); CHLORIDE 103 mMol/L (96-110); CO2 26 mMol/L (22-32); CREATININE 0.7 mg/dL (0.5-1.1); ESTIMATED GFR (MDRD EQUATION) > 60; PHOSPHORUS 3.2 mg/dL (2.5-4.9); POTASSIUM 3.8 mMol/L (3.7-5.1); SODIUM 135 mMol/L (135-145)
[2016-09-11 07:23] LABS: ABSOLUTE NEUTROPHIL CT (ANC) 6.6 K/uL (1.8-7.8); BANDED NEUTROPHIL # 0.3 K/uL (0.0-0.1); BANDED NEUTROPHILS % 3 %; LYMPHOCYTE # 2.1 K/uL (0.8-4.0); LYMPHOCYTE % 20 %; MONOCYTE # 1.2 K/uL (0.0-1.0); SEGMENTED NEUTROPHIL # 6.2 K/uL (1.8-7.8); SEGMENTED NEUTROPHIL % 60 %
--- NOTE | 2016-09-11 08:05 | NUR ---
PT MOVED TO NO RISK W/ 100% INTAKE X PAST TWO DAYS. WILL MONITOR ROUTINELY.
--- NOTE | 2016-09-11 10:30 | NUR ---
SPOKE TO NIMO AT TO [facility] SHE REPORTS THAT SHE HAS REVIEWED THE INFO THAT I FAXED AND THAT THEY WILL ACCEPT PATIENT ONCE SHE IS READY FOR DISCHARGE./
--- NOTE | 2016-09-11 11:18 | NUR ---
RECEIVED CALL FROM Sharon LOPEZ SHE REPORTS THAT PATIENT IS MEDICALLY STABLE TO GO TO THE [place] TODAY AT [facility] AND THAT SHE HAS SPOKE TO CECY LOPEZ WHO WILL ACCEPT PATIENT. KARLA'S SON WILL BE HERE AT NOON TO TRANSPORT THER TO THE [facility],SPOKE TO SUSAN RAMSAY AND UPDATED HER. SHE REPORTS THAT IS OK TO SEND PATIENT TODAY. SHE WOULD LIKE ORDERS FAXED. GAVE THE CONTACTR NUMBER FOR NURSE TO NURSE TO [facility] LAMBERT
--- NOTE | 2016-09-11 12:15 | NUR ---
Patient is a 85 year old female who was admitted to [facility] on 09/07/16 for right upper quadrant pain. She has been previously worked up in [place] before but not able fix the problem there so he transferred here. Upon the ERCP- it failed due to too much diverticuli so they placed a T-Tube in her right upper quadarnt, which she will have for about 2.5 weeks. Past medical history includes hypothyroidism, vertigo, rheumatoid arthritis and GERD. Allergies include demerol, sulfa, and latex. She is alert and oriented x3. VSS and on RA. Dressing to the right abdomen is C/D/I. Taking norco for pain, relief noted. Last dose was around 0720. Up with SBA and cane. Voiding adequately. Last BM was today. Denies numbness and tingling. Took a shower this morning. Cooperative with cares.
[2016-10-14] MEDS ORDERED: ZOFRAN4 MG PO/SUBLING (17:40)
[2016-11-06] MEDS ORDERED: NORCO 5-325 TA1 EACH PO (12:17)
== END 2016-09-11 15:00 | disposition swing bed (61) | DRG 444 ==
LOC: GMSU 14:45
PROVIDERS: Internal Medicine; Physician Assistant; Radiology Diagnostic Radiology; ADMIT Internal Medicine
PROC: 0FJB8ZZ Inspection of Hepatobiliary Duct, Via Natural or Artificial Opening Endoscopic (ICD-10-PCS; principal; 2016-09-08)
PROC: 0F9930Z Drainage of Common Bile Duct with Drainage Device, Percutaneous Approach (ICD-10-PCS; 2016-09-08)
PROC: BF10YZZ Fluoroscopy of Bile Ducts using Other Contrast (ICD-10-PCS; 2016-09-08)
DX: K80.47 Calculus of bile duct with acute and chronic cholecystitis with obstruction (principal); E43 Unspecified severe protein-calorie malnutrition; K76.89 Other specified diseases of liver; I82.431 Acute embolism and thrombosis of right popliteal vein; E03.9 Hypothyroidism, unspecified; E87.6 Hypokalemia; M06.9 Rheumatoid arthritis, unspecified; K21.9 Gastro-esophageal reflux disease without esophagitis; D73.4 Cyst of spleen; I49.1 Atrial premature depolarization
CPT/HCPCS: C1729; C1769; C1887; C1894; J1100; J1644; J2405; J2543; J3480; J7030; J7042; J7050; J7500; Q9967

== ENCOUNTER → 2016-10-02 | Outpatient (CLI) | payer MEDICARE, BC ==
[~2016-10-02] VITALS: Ht 151.1 cm; Wt 57.0 kg
[~2016-10-02] MED LIST: ALEVE220 M1 PO; B-12500 MCG PO; CIPRO500 MG PO; FLAGYL500 MG PO; FLONASE 50 MCG/16 GM NOSE; IMURAN50 MG PO; LEVOTHROID (S137 MCG PO; MAXZIDE 37.5 M1 EACH PO; NORCO 5-325 TA1 EACH PO; OSCAL + D500 MG PO; RED YEAST RICE600 M1 PO; THERA-VITE W/ B1 TAB PO; ULTRAM50 MG PO; VITAMIN D1000 UNIT PO; ZANTAC150 MG PO; ZOFRAN ODT4 MG PO; ZOFRAN4 MG PO/SUBLING; ZYRTEC10 M3 PO
[2016-10-02 14:07] LABS: HEMATOCRIT 38.4 % (30.0-46.0); HEMOGLOBIN 12.4 g/dL (10.0-15.0); MCH 29.2 pg (27.0-34.0); MCHC 32.3 gm/dL (32.0-36.5); MCV 90.6 fl (83.0-98.0); MPV 10.5 fl (9.4-12.4); RBC 4.24 M/uL (3.00-5.00); RDW-CV 14.1 % (11.9-14.6); WBC 6.7 K/uL (4.0-11.0)
[2016-10-02 14:16] LABS: PROTIME 10.4 SECONDS (9.6-11.1)
[2016-10-02 14:21] LABS: ANION GAP 13.2 (10.0-19.0); CALCIUM 9.1 mg/dL (8.5-10.5); PHOSPHORUS 3.1 mg/dL (2.5-4.9); POTASSIUM 3.2 mMol/L (3.7-5.1)
== END | disposition disaster alternative care site (69) ==
LOC: GPOC 09-29 14:00 → GOPP 13:07 → GPOC 14:00
PROVIDERS: Physician Assistant
PROC: 0F20X0Z Change Drainage Device in Liver, External Approach (ICD-10-PCS; principal; 2016-10-02)
DX: K80.40 Calculus of bile duct with cholecystitis, unspecified, without obstruction (principal); D72.829 Elevated white blood cell count, unspecified; E87.6 Hypokalemia; E03.9 Hypothyroidism, unspecified
CPT/HCPCS: J2001; J2250; J3010; J7030

== ENCOUNTER → 2016-10-20 | Outpatient (CLI) | payer MEDICARE, BC ==
[~2016-10-20] VITALS: Ht 149.9 cm; Wt 54.5 kg
== END ==
LOC: GOPP 10-16 13:00 → GRAD 10-16 14:00 → GOPP 12:47
PROC: 0FT40ZZ Resection of Gallbladder, Open Approach (ICD-10-PCS; principal; 2016-10-20)
PROC: 0FQ Hepatobiliary System and Pancreas, Repair (ICD-10-PCS; 2016-10-20)
PROC: BF030ZZ Plain Radiography of Gallbladder and Bile Ducts using High Osmolar Contrast (ICD-10-PCS; 2016-10-20)
DX: K80.50 Calculus of bile duct without cholangitis or cholecystitis without obstruction (principal)
CPT/HCPCS: C1725; C1729; C1769; C1887; C1894; J1644; J1956; J2250; J3010; J7030

== ENCOUNTER → 2016-11-03 | Outpatient (CLI) | payer MEDICARE, BC ==
[2016-11-03 13:22] LABS: HEMATOCRIT 45.7 % (30.0-46.0); HEMOGLOBIN 14.7 g/dL (10.0-15.0); MCH 28.3 pg (27.0-34.0); MCHC 32.2 gm/dL (32.0-36.5); MCV 88.1 fl (83.0-98.0); MPV 10.2 fl (9.4-12.4); RBC 5.19 M/uL (3.00-5.00); RDW-CV 13.7 % (11.9-14.6); WBC 8.9 K/uL (4.0-11.0)
[2016-11-03 13:29] LABS: INR - (THERAPEUTIC) 1.04 (0.92-1.07); PROTIME 10.9 SECONDS (9.8-11.4)
[2016-11-03 13:40] LABS: ALBUMIN 3.7 gm/dL (3.5-5.0); ANION GAP 13.5 (10.0-19.0); CALCIUM 9.9 mg/dL (8.5-10.5); PHOSPHORUS 3.7 mg/dL (2.5-4.9); POTASSIUM 3.5 mMol/L (3.7-5.1)
== END | disposition disaster alternative care site (69) ==
LOC: GPOC 10-30 09:00 → GOPP 10-30 09:00
PROVIDERS: Radiology Diagnostic Radiology
PROC: 0W2FX0Z Change Drainage Device in Abdominal Wall, External Approach (ICD-10-PCS; principal; 2016-11-03)
DX: Z46.82 Encounter for fitting and adjustment of non-vascular catheter (principal); K80.20 Calculus of gallbladder without cholecystitis without obstruction
CPT/HCPCS: J1956; J2250; J3010; J7030

== ENCOUNTER → 2016-11-06 | Day surgery (SDC) | payer MEDICARE, BC ==
[~2016-11-06] VITALS: Ht 151.1 cm; Wt 54.8 kg
--- NOTE | ~2016-11-06 | OR ---
PATIENT'S NAME: KARLA CUEVA [facility] AGE: 86 Y [address] ROOM: [place], [place] [address] LOCATION: [facility] [place] ADMIT DATE: 11/06/2016 OR/Procedure Report DISCHARGE DATE: FAMILY PHYSICIAN: Ari Grey MD ATTENDING PHYSICIAN: Delfino Holder SURGEON: Delfino Holder MD MACHINE WELDER: Kaylee Spivey PA-C DATE OF PROCEDURE: 11/06/2016 PREOPERATIVE DIAGNOSIS: Cholelithiasis and choledocholithiasis, status post PTC drain placement. PROCEDURE PERFORMED: Laparoscopic cholecystectomy. FINDINGS: Stones were present within the cystic duct. The gallbladder was inflamed. ESTIMATED BLOOD LOSS: Less than 50 mL. COMPLICATIONS: None. INDICATIONS: The patient is an 86-year-old female who presented with abdominal pain. She had had elevated liver tests, ultimately had attempted ERCP, unsuccessful, had percutaneous transhepatic drain placement. Her sphincter had been dilated, continued to have stones. It was felt that cholecystectomy was necessary. I was consulted for this. We had discussed clearance during the surgery versus ongoing balloon dilatation and extraction percutaneously. Risks, benefits, and alternatives of cholecystectomy were discussed with the patient, and she elected to proceed. DESCRIPTION OF PROCEDURE: The patient was taken into the operating room. She was supine. She was given IV sedation. Abdomen was prepped with ChloraPrep and sterilely draped. Local anesthetic was infiltrated just superior to the umbilicus. A transverse incision was created. The abdomen was elevated. A Veress needle was inserted. Pneumoperitoneum was induced. Following this, a 5 mm trocar was inserted, followed by insertion of the camera. There was no injury from initial trocar placement. Three more trocars were then positioned; an 11 mm epigastric, and two 5 mm right subcostal ports. Skin overlying the peritoneum was first anesthetized prior to making the incisions. All 3 of these trocars were inserted under direct visualization. There were adhesions to the gallbladder. The gallbladder was grasped. There were also adhesions encompassing the drain which was not able to be visualized. The gallbladder was grasped and elevated. The infundibulum was grasped and retracted inferiorly and laterally. There was significant amount of inflammatory tissue that had to be dissected off the gallbladder prior to PATIENT'S NAME: KARLA CUEVA [facility] AGE: 86 Y [address] ROOM: [place] [id number] LOCATION: [facility] ADMIT DATE: 11/06/2016 OR/Procedure Report DISCHARGE DATE: FAMILY PHYSICIAN: Ari Grey MD ATTENDING PHYSICIAN: Delfino Holder doing this. We were able to slowly identify both the cystic duct and artery, creating a critical window. The cystic duct was very dilated, but once we had adequate anatomy, we were comfortable clipping and dividing the cystic artery. We clipped near the gallbladder, partially transected this as the cystic duct appeared quite dilated. Two stones were extracted from the cystic duct. Two clips were then placed across the cystic duct. The cystic duct was transected. An Endoloop was then placed around the cystic duct and secured. The gallbladder was then removed from the liver bed using electrocautery. This was placed in an EndoCatch bag as well as the stones that were extracted from the cystic duct. The gallbladder was removed from the epigastric port site. The liver bed was then inspected. It appeared hemostatic. Clips appeared to be in good position. The area was irrigated. The fluid was removed. Hemostasis was checked and had been obtained. Pneumoperitoneum was released. The trocars were removed. The trocar sites appeared hemostatic. The fascia of the epigastric port site was approximated with 0 Vicryl suture, followed by skin closure of all 4 port sites with 4-0 Monocryl suture. Steri- Strips and sterile dressings were placed. The patient was extubated and sent to Recovery in good condition. DELFINO HOLDER MD BJO/modl /[id number] d: 11/06/16 1204 t: 11/18/16 181, OPERATIVE SUMMARY
[2016-11-06 07:31] LABS: BASOPHIL # 0.1 K/uL (0.0-0.2); BASOPHIL % 0.6 %; EOSINOPHIL # 0.4 K/uL (0.0-0.5); EOSINOPHIL % 4.5 %; HEMATOCRIT 39.8 % (30.0-46.0); IMMATURE GRANULOCYTE % 0.3 %; LYMPHOCYTE # 1.5 K/uL (0.8-4.0); LYMPHOCYTE % 16.7 %; MCH 28.8 pg (27.0-34.0); MCHC 32.7 gm/dL (32.0-36.5); MCV 88.1 fl (83.0-98.0); MONOCYTE # 0.9 K/uL (0.0-1.0); MPV 10.3 fl (9.4-12.4); NEUTROPHIL # (ANC) 6.1 K/uL (1.8-7.8); NEUTROPHIL % 67.9 %; NRBC % 0 /100WBC (0-0.00); PLATELET COUNT 357 K/uL (150-450); RBC 4.52 M/uL (3.00-5.00); RDW-CV 13.8 % (11.9-14.6); WBC 8.9 K/uL (4.0-11.0)
[2016-11-06 07:47] LABS: CREATININE 1.5 mg/dL (0.5-1.1); TOTAL BILIRUBIN 0.7 mg/dL (0.0-1.5); TOTAL PROTEIN 8.1 g/dL (6.0-8.4)
== END ==
LOC: GPOC 11-05 15:00 → GSDC 06:56 → GPOC 09:00
PROVIDERS: Surgery
PROC: 0FT44ZZ Resection of Gallbladder, Percutaneous Endoscopic Approach (ICD-10-PCS; principal; 2016-11-06)
DX: K80.10 Calculus of gallbladder with chronic cholecystitis without obstruction (principal); M06.9 Rheumatoid arthritis, unspecified; Z90.710 Acquired absence of both cervix and uterus; Z88.6 Allergy status to analgesic agent; Z91.040 Latex allergy status; Z88.2 Allergy status to sulfonamides; Z79.899 Other long term (current) drug therapy
CPT/HCPCS: J0694; J1885; J3480; J7120

== ENCOUNTER → 2016-11-19 | Outpatient (CLI) | payer MEDICARE, BC | END | disposition disaster alternative care site (69) | LOC: GOPP 11-11 → GPOC 11-11 → GOPD 11-11 → GRAD 11-12 09:00 → GOPD 11-17 → GRAD 13:12 → GOPD 14:00 | PROC: 0FPB30Z Removal of Drainage Device from Hepatobiliary Duct, Percutaneous Approach (ICD-10-PCS; principal; 2016-11-19) | DX: Z46.82 Encounter for fitting and adjustment of non-vascular catheter (principal); Z90.49 Acquired absence of other specified parts of digestive tract ==